=== PATIENT | male | born 1940 | race Caucasian/White ===

== ENCOUNTER 2017-02-03 12:16 | Emergency (ER) | payer SELFPAY ==
[~2017-02-03] VITALS: Ht 165.1 cm; Wt 65.9 kg
[2017-02-03] MEDS ORDERED: SODIUM CHLORIDE 0.9% 1,000 ML IV ONE (13:00)
[2017-02-03] MEDS ORDERED: ASPI81TA2 PO (13:42)
[2017-02-03] MEDS ORDERED: LEVO25TA4 PO (13:42)
[2017-02-03] MEDS ORDERED: RISP1 PO (13:42)
[2017-02-03] MEDS ORDERED: MEMA5 PO (13:42)
[2017-02-03] MEDS ORDERED: UNKN BP MED PO (13:42)
[2017-02-03 14:32] VITALS: BP 121/73
== END 2017-02-03 14:33 | disposition home or self-care (01) ==
LOC: EMS 12:22 → EDBD 12:22 → EMS 14:33
DX: F03.90 Unspecified dementia, unspecified severity, without behavioral disturbance, psychotic disturbance, mood disturbance, and anxiety (principal); I10 Essential (primary) hypertension; E03.9 Hypothyroidism, unspecified
CPT/HCPCS: 99285